=== PATIENT | female | born 1990 | race African-American/Black ===

== ENCOUNTER 2023-01-23 20:29 | Emergency (ER) | payer OTHER ==
[~2023-01-23] VITALS: Ht 165.1 cm; Wt 94.3 kg
[2023-01-23 20:34] VITALS: BP 142/70; TEMP 98.2; O2SAT 98
== END 2023-01-23 21:29 | disposition left against medical advice (07) ==
LOC: ER 20:31
DX: M25.552 Pain in left hip (principal); Z53.21 Procedure and treatment not carried out due to patient leaving prior to being seen by health care provider